=== PATIENT | female | born 1995 ===

== ENCOUNTER 2024-12-27 00:06 | Emergency (ER) | payer MEDICAID, SELFPAY ==
[2024-12-27 00:20] VITALS: BP 136/94; PULSE 102; O2SAT 99
[2024-12-27 00:40] VITALS: BP 125/86; PULSE 103; RESP 18; TEMP 36.6; O2SAT 97; BMI 27.5
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
[2024-12-27 00:54] LABS: MANUAL DIFF FLAG NO
[2024-12-27 00:56] LABS: Basophils Absolute Auto 0.1 X10*3/uL (0.0-0.2); Basophils Percent Auto 1.2 % (0-2); Eosinophils Absolute Auto 0.6 X10*3/uL (0.0-0.4); Eosinophils Percent Auto 6.4 % (0-4); Hematocrit 45.3 % (37.0-47.0); Hemoglobin 14.9 g/dl (12.0-16.0); Imm Gran Abs Auto 0.05 X10*3/uL (0.00-0.03); Imm Gran Pct Auto 0.5 % (0.0-0.4); Lymphocytes Absolute Auto 3.1 X10*3/uL (1.2-4.9); Lymphocytes Percent Auto 34.1 % (20-40); Mean Corpuscular HGB Conc 32.9 g/dl (31.0-35.0); Mean Corpuscular Hemoglobin 31.6 pg (27.0-33.0); Mean Corpuscular Volume 96.2 fL (80.0-98.0); Mean Platelet Volume 9.2 fL (9.4-12.3); Monocytes Absolute Auto 0.4 X10*3/uL (0.1-1.2); Monocytes Percent Auto 4.1 % (2-11); Neutrophils Absolute Auto 4.9 x10*3/uL (2.0-8.3); Neutrophils Percent Auto 53.7 % (45-73); Platelet Count 373 X10*3/uL (160-400); Red Blood Count 4.71 X10*6/uL (4.20-5.50); Red Cell Distribution Width 13.1 % (11.0-16.0); White Blood Count 9.1 X10*3/uL (4.8-10.8)
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
[2024-12-27 01:07] LABS: Amphetamine Screen Urine Not Detected (Not Detect); Barbiturates, Urine Not Detected (Not Detect); Benzodiazepines Screen Urine Not Detected (Not Detect); Buprenorphine Scr Not Detected (Not Detect); Cannabinoid Screen Urine Not Detected (Not Detect); Cocaine Screen Urine Not Detected (Not Detect); Fentanyl, urine Not Detected (Not Detect); Methadone Screen, Urine Not Detected (Not Detect); Opiate Screen Urine Not Detected (Not Detect); Oxycodone Screen Urine Not Detected (Not Detect); Phencyclidine Screen Urine Not Detected (Not Detect)
[2024-12-27 01:20] LABS: Alanine Aminotransferase 18 U/L (0-31); Albumin Level 4.8 g/dL (3.5-5.0); Alkaline Phosphatase 75 U/L (39-117); Anion Gap 17 (12-20); Aspartate Amino Transferase 22 U/L (5-31); Bilirubin Direct 0.1 mg/dL (0.0-0.5); Bilirubin Total 0.4 mg/dL (0.0-1.0); Blood Urea Nitrogen 9 mg/dL (9-16); Calcium 9.1 mg/dL (8.4-10.2); Carbon Dioxide 24 mmol/L (22-29); Chloride 111 mmol/L (96-108); Creatinine Clr Calc Pharmacy 112.2; Estimated Glomerular Filt Rate > 60; Ethanol 325 mg/dL; Glucose Random 82 mg/dL (60-115); HCG Quantitative < 2 mIU/mL; Magnesium 2.5 mg/dL (1.6-2.6); Potassium 3.7 mmol/L (3.3-5.1); Sodium 148 mmol/L (135-145); Total Protein 8.2 g/dL (6.5-8.0)
[2024-12-27] MEDS: LORazepam 1 MG TABLET 2 MG PO (01:22)
[2024-12-27 03:31] VITALS: PULSE 103; RESP 19; O2SAT 93
[2024-12-27 04:06] VITALS: PULSE 104; RESP 18; O2SAT 95
[2024-12-27 05:55] VITALS: BP 100/64; PULSE 109; RESP 17; TEMP 36.7; O2SAT 95
--- NOTE | 2024-12-27 09:04 | PC.NURSE ---
patient now awake at this time requesting to leave. pt educated that she was placed on a section 12 at this time and is unable to leave until cleared by care team. pt agreeable to plan of care. calm/cooperative. CIWA updated in worklist. diet order placed. 1:1 sitter remains present. plan of care ongoing.
--- NOTE | 2024-12-27 09:17 | PC.NURSE ---
Per pt approval patient update was given to Sarthak donaldson. Sarthak would like to be updated on patient plan of care.
--- NOTE | 2024-12-27 09:43 | PC.NURSE ---
Assumed care of patient at 0943, patient calm and cooperative, offering no complaints. Pending CARE team
[2024-12-27 09:53] LABS: Appearance Urine Clear; Color Urine Yellow; Glucose Urine UA Negative (Negative); Leukocyte Esterase Urine Negative (Negative); Nitrite Urine Negative (Negative); PH 6.5 (5.0-9.0); Specific Gravity - Urine <= 1.005 (1.005-1.025); UMIC TRIGGER UA YES; Urine Blood Small (1+) (Negative); Urine Ketones Negative (Negative); Urine Protein Negative (Neg-Trace)
[2024-12-27 10:03] LABS: Bacteria Urine None Seen (None Seen); Hyaline Casts Urine 0-2 /LPF (0-2); RBC Urine 0-2 /HPF (0-2); Squamous Epithelial Cell Urine 0-2 /HPF (0-2); WBC Urine 0-5 /HPF (0-5)
--- NOTE | 2024-12-27 11:23 | MHC.CARE ---
Pt does not meet the criteria for IPLOC. D/C to current providers. Provider in agreement.
[2024-12-27 11:36] VITALS: BP 108/71; PULSE 64; RESP 14; TEMP 36.6; O2SAT 99
== END 2024-12-27 11:37 | disposition home or self-care (01) ==
PROVIDERS: Emergency Provider Emergency Medicine
DX: R45.851 Suicidal ideations (principal); S50.812A Abrasion of left forearm, initial encounter; F10.129 Alcohol abuse with intoxication, unspecified; Y90.8 Blood alcohol level of 240 mg/100 ml or more; X83.8XXA Intentional self-harm by other specified means, initial encounter; Y93.9 Activity, unspecified; Y92.9 Unspecified place or not applicable; Y99.8 Other external cause status; Z51.81 Encounter for therapeutic drug level monitoring; Z79.899 Other long term (current) drug therapy
CPT/HCPCS: 36415; 80048; 80076; 80307; 81001; 83735; 84702; 85025; 99285; S9485